=== PATIENT | male | born 1960 | race Caucasian/White ===

== ENCOUNTER 2018-08-17 19:21 | Inpatient (IN) ==
[2018-08-17] MEDS ORDERED: ASPIRIN 325 MG TABLET PO STA (20:38)
[2018-08-17] MEDS ORDERED: ALBUTEROL/IPRATROPIUM 3 ML NEB RESP TX STA (20:40)
[2018-08-17] MEDS ORDERED: methylPREDNISolone SOD SUC 125 MG/2 ML VIAL IV STA (20:40)
[2018-08-17 20:44] LABS: Basophils # 0.1 10*3/uL (0.0-0.2); Basophils % 0.5 % (0.0-0.8); Eosinophils # 0.1 10*3/uL (0.0-0.87); Eosinophils % 0.9 % (0.00-10.9); Hematocrit 52.5 VOL% (42.0-52.0); Hemoglobin 17.9 GM/DL (14.0-18.0); Immature Granulocytes % 0.6 %; Immature Granulocytes Absolute 0.06 #; Lymphocytes # 1.7 10*3/uL (1.4-4.0); Mean Corpuscular HGB Conc 34.1 GM/DL (32-36); Mean Corpuscular Hemoglobin 31 PG (27-34); Mean Corpuscular Volume 91.5 FL (87-102); Mean Platelet Volume 12.1 FL (9.6-12.0); Monocytes # 0.9 10*3/uL (0.11-0.8); Monocytes % 9.2 % (1.7-12.7); Neutrophils % 71.8 % (38.7-73.9); Platelet Count 184 T/CUMM (130-400); Red Blood Count 5.74 MC/CUMM (3.8-5.5); Red Cell Distribution Width 13.6 % (9.3-17.3); White Blood Count 9.8 T/CUMM (4-12)
[2018-08-17 21:00] LABS: Albumin 3.8 G/DL (3.4-5.0); Bilirubin,Total 0.7 MG/DL (0.2-1.0); Calcium 9.2 MG/DL (8.5-10.1); Osmolality,Calculated 276.4 MOS/KG (273-304); Potassium 3.6 MMOL/L (3.5-5.1); Total Protein 7.6 G/DL (6.4-8.3)
[2018-08-17] MEDS ORDERED: ACETAMINOPHEN 325 MG TABLET PO PRN (21:25)
[2018-08-17] MEDS ORDERED: ONDANSETRON 4 MG/2 ML VIAL IV PRN (21:25)
[2018-08-17] MEDS ORDERED: ALBUTEROL 2.5 MG/3 ML NEB RESP TX PRN (22:04)
[2018-08-17] MEDS: ENOXAPARIN 40 MG/0.4 ML SYRINGE SUBCUT SCH (23:43)
[2018-08-17] MEDS: clonazePAM 0.5 MG TABLET PO SCH (23:43)
[2018-08-18] MEDS: ALBUTEROL/IPRATROPIUM 3 ML NEB RESP TX SCH ×4 (00:17→19:25)
[2018-08-18] MEDS ORDERED: predniSONE 20 MG TABLET PO SCH (09:00)
[2018-08-18] MEDS: MONTELUKAST 10 MG TABLET PO SCH (09:30)
[2018-08-18] MEDS: clonazePAM 0.5 MG TABLET PO SCH ×2 (09:30→20:53)
[2018-08-18] MEDS: FLUTICASONE/SALMETEROL 250-50 DISKUS 14 DOSE INH SCH (09:30)
[2018-08-18] MEDS: PANTOPRAZOLE 40 MG TABLET PO SCH (09:31)
[2018-08-18] MEDS: methylPREDNISolone SOD SUC 40 MG/1 ML VIAL IV SCH (18:20)
[2018-08-18] MEDS: ENOXAPARIN 40 MG/0.4 ML SYRINGE SUBCUT SCH (20:53)
[2018-08-19] MEDS: ALBUTEROL/IPRATROPIUM 3 ML NEB RESP TX SCH ×4 (00:26→19:04)
[2018-08-19] MEDS: methylPREDNISolone SOD SUC 40 MG/1 ML VIAL IV SCH ×2 (03:57→16:23)
[2018-08-19] MEDS: clonazePAM 0.5 MG TABLET PO SCH ×2 (09:38→20:30)
[2018-08-19] MEDS: PANTOPRAZOLE 40 MG TABLET PO SCH (09:38)
[2018-08-19] MEDS: MONTELUKAST 10 MG TABLET PO SCH (09:38)
[2018-08-19] MEDS: FLUTICASONE/SALMETEROL 250-50 DISKUS 14 DOSE INH SCH (09:39)
[2018-08-19] MEDS: ENOXAPARIN 40 MG/0.4 ML SYRINGE SUBCUT SCH (20:30)
[2018-08-20] MEDS: ALBUTEROL/IPRATROPIUM 3 ML NEB RESP TX SCH ×4 (00:50→19:01)
[2018-08-20] MEDS: methylPREDNISolone SOD SUC 40 MG/1 ML VIAL IV SCH ×2 (03:40→15:50)
[2018-08-20] MEDS: FLUTICASONE/SALMETEROL 250-50 DISKUS 14 DOSE INH SCH (08:57)
[2018-08-20] MEDS: PANTOPRAZOLE 40 MG TABLET PO SCH (08:58)
[2018-08-20] MEDS: MONTELUKAST 10 MG TABLET PO SCH (08:58)
[2018-08-20] MEDS: clonazePAM 0.5 MG TABLET PO SCH ×2 (08:58→20:50)
[2018-08-20 13:15] LABS: Calcium 8.7 MG/DL (8.5-10.1); Osmolality,Calculated 277.7 MOS/KG (273-304); Potassium 3.8 MMOL/L (3.5-5.1)
[2018-08-20] MEDS: ENOXAPARIN 40 MG/0.4 ML SYRINGE SUBCUT SCH (20:50)
[2018-08-21] MEDS: ALBUTEROL/IPRATROPIUM 3 ML NEB RESP TX SCH ×2 (00:07→07:21)
[2018-08-21] MEDS: methylPREDNISolone SOD SUC 40 MG/1 ML VIAL IV SCH (04:09)
[2018-08-21] MEDS: FLUTICASONE/SALMETEROL 250-50 DISKUS 14 DOSE INH SCH (09:13)
[2018-08-21] MEDS: clonazePAM 0.5 MG TABLET PO SCH (09:13)
[2018-08-21] MEDS: MONTELUKAST 10 MG TABLET PO SCH (09:13)
[2018-08-21] MEDS: PANTOPRAZOLE 40 MG TABLET PO SCH (09:16)
[2018-08-21 11:53] VITALS: BP 121/65
== END 2018-08-21 13:04 | disposition home or self-care (01) | DRG 192 ==
LOC: N.ED 19:21 → N.EDINP 19:21 → N.4E 22:09
PROVIDERS: ADMIT Internal Medicine; ATTEND Internal Medicine